=== PATIENT | female | born 1950 | race Caucasian/White ===

== ENCOUNTER → 2016-08-04 | Outpatient (REF) | payer MEDICARE, OTHER ==
[2016-08-04 11:50] LABS: BASO % 0.5 % (0.0-1.0); EOS # 0.2 K/mm3 (0.0-0.50); EOS % 2.5 % (0.0-3.0); LARGE UNSTAINED CELL # 0.1 K/mm3 (0.0-0.4); LARGE UNSTAINED CELL % 1.3 % (0.0-4.0); LYMPH # 1.7 K/mm3 (1.5-4.5); MEAN CORPUSCULAR HEMOGLOBIN 30.6 pg (27.0-33.0); MEAN CORPUSCULAR HGB CONC 33.6 g/dl (32.0-36.5); MEAN CORPUSCULAR VOLUME 91.1 fl (80.0-96.0); MONO # 0.4 K/mm3 (0.0-0.8); MONO % 4.6 % (0.0-5.0); NEUTROPHILS # 6.6 K/mm3 (1.8-7.7); NEUTROPHILS % 72.1 % (36.0-66.0); PLATELET COUNT, AUTOMATED 273 k/mm3 (150-450); RED CELL DISTRIBUTION WIDTH 13.5 % (11.5-14.5); WHITE BLOOD COUNT 9.1 K/mm3 (4.0-10.0)
[2016-08-04 12:05] LABS: ANION GAP 7 MEQ/L (8-16); BLOOD UREA NITROGEN 17 MG/DL (7-18); CALCIUM LEVEL 9.1 MG/DL (8.8-10.2); CARBON DIOXIDE LEVEL 29 MEQ/L (21-32); CHLORIDE LEVEL 103 MEQ/L (98-107); CREATININE FOR GFR 0.87 MG/DL (0.55-1.02); GLOMERULAR FILTRATION RATE > 60.0 (>45); GLUCOSE, FASTING 116 MG/DL (80-110); POTASSIUM SERUM 4.4 MEQ/L (3.5-5.1); SODIUM LEVEL 139 MEQ/L (136-145)
== END ==
LOC: M SFHCCLAY 09:21
PROVIDERS: ATTEND Family Medicine
DX: Z85.3 Personal history of malignant neoplasm of breast (principal)

== ENCOUNTER → 2016-12-04 | Outpatient (CLI) | payer MEDICARE, OTHER ==
--- NOTE | 2016-12-05 09:07 | DEXA ---
AP SPINE L1 - L4 1.138 -0.5 1.2 LT FEMUR TOTAL 1.013 0.0 1.4 RT FEMUR TOTAL 1.036 0.2 1.6 TOTAL BODY TOTAL OTHER COMMENTS: Normal bone densitometry of the spine and hips. The density of the spine has increased 11.5% since the initial exam on 2003. The spine density has decreased 5.4% since the most recent exam on 12/01/2014. The density of the left hip has increased 2.2% since initial exam on 10/21/2003. The density of the left hip has decreased 2.6% since the most recent exam on . The density of the right hip has decreased 9.1% since initial exam on 2003. The density of the right hip has decreased 4.2% since the most recent exam on . FOLLOW-UP: Recommendation for the next bone density exam: 5 years. [place]
== END ==
LOC: M WHC 08:37
PROVIDERS: ATTEND Internal Medicine Medical Oncology
DX: M81.0 Age-related osteoporosis without current pathological fracture (principal); C50.912 Malignant neoplasm of unspecified site of left female breast; Z79.811 Long term (current) use of aromatase inhibitors; Z23 Encounter for immunization; Z91.89 Other specified personal risk factors, not elsewhere classified
CPT/HCPCS: 77080; 90662; G0008

== ENCOUNTER → 2017-02-21 | Outpatient (REF) | payer MEDICARE, OTHER ==
[2017-02-21 11:44] LABS: BASO # 0.1 10^3/uL (0.0-0.2); BASO % 0.6 % (0.0-1.0); EOS # 0.2 10^3/uL (0.0-0.50); EOS % 2.4 % (0.0-3.0); IMMATURE GRANULOCYTE % 0.5 % (0-0); LYMPH # 1.9 10^3/uL (1.5-4.5); LYMPH % 22.1 % (24.0-44.0); MEAN CORPUSCULAR HEMOGLOBIN 29.8 pg (27.0-33.0); MEAN CORPUSCULAR HGB CONC 33.5 g/dl (32.0-36.5); MEAN CORPUSCULAR VOLUME 88.9 fl (80.0-96.0); MONO # 0.7 10^3/uL (0.0-0.8); MONO % 7.8 % (0.0-5.0); NEUTROPHILS # 5.8 10^3/uL (1.8-7.7); NEUTROPHILS % 66.6 % (36.0-66.0); PLATELET COUNT, AUTOMATED 261 10^3/uL (150-450); RED CELL DISTRIBUTION WIDTH 14.6 % (11.5-14.5); WHITE BLOOD COUNT 8.7 10^3/uL (4.0-10.0)
[2017-02-21 12:23] LABS: ALBUMIN 3.7 GM/DL (3.2-5.2); ALBUMIN/GLOBULIN RATIO 1.19 (1.00-1.93); ALKALINE PHOSPHATASE 92 U/L (45-117); ALT/SGPT 25 U/L (12-78); ANION GAP 7 MEQ/L (8-16); AST/SGOT 18 U/L (7-37); BILIRUBIN,TOTAL 0.6 MG/DL (0.2-1.0); BLOOD UREA NITROGEN 23 MG/DL (7-18); CALCIUM LEVEL 9.1 MG/DL (8.8-10.2); CARBON DIOXIDE LEVEL 31 MEQ/L (21-32); CHLORIDE LEVEL 103 MEQ/L (98-107); CHOLESTEROL LEVEL 166 MG/DL (<200); FREE T4 1.06 NG/DL (0.76-1.46); GLOMERULAR FILTRATION RATE > 60.0 (>45); GLUCOSE, FASTING 114 MG/DL (80-110); SODIUM LEVEL 141 MEQ/L (136-145); TOTAL PROTEIN 6.8 GM/DL (6.4-8.2); TRIGLYCERIDES LEVEL 151 MG/DL (<150)
== END ==
LOC: M SFHCCLAY 08:42
PROVIDERS: ATTEND Nurse Practitioner Family
DX: I10 Essential (primary) hypertension (principal)

== ENCOUNTER → 2017-07-12 | Outpatient (REF) | payer MEDICARE, OTHER ==
[2017-07-12 12:36] LABS: ANION GAP 6 MEQ/L (8-16); BLOOD UREA NITROGEN 19 MG/DL (7-18); CALCIUM LEVEL 9.3 MG/DL (8.8-10.2); CARBON DIOXIDE LEVEL 31 MEQ/L (21-32); CHLORIDE LEVEL 103 MEQ/L (98-107); CREATININE FOR GFR 0.88 MG/DL (0.55-1.30); GLOMERULAR FILTRATION RATE > 60.0 (>45); GLUCOSE, FASTING 109 MG/DL (70-100); SODIUM LEVEL 140 MEQ/L (136-145)
[2017-07-12 13:29] LABS: ESTIMATED AVERAGE GLUCOSE 140 MG/DL (60-110); HEMOGLOBIN A1c 6.5 %
== END ==
LOC: M SFHCCLAY 08:54
DX: E78.2 Mixed hyperlipidemia (principal); I10 Essential (primary) hypertension; R73.01 Impaired fasting glucose
CPT/HCPCS: 83036

== ENCOUNTER → 2017-11-06 | Outpatient (REF) | payer MEDICARE, OTHER ==
[2017-11-06 13:15] LABS: ANION GAP 8 MEQ/L (8-16); BLOOD UREA NITROGEN 22 MG/DL (7-18); CALCIUM LEVEL 9.3 MG/DL (8.8-10.2); CARBON DIOXIDE LEVEL 30 MEQ/L (21-32); CHLORIDE LEVEL 103 MEQ/L (98-107); CREATININE FOR GFR 0.96 MG/DL (0.55-1.30); GLOMERULAR FILTRATION RATE > 60.0 (>45); GLUCOSE, FASTING 118 MG/DL (70-100); POTASSIUM SERUM 4.4 MEQ/L (3.5-5.1); SODIUM LEVEL 141 MEQ/L (136-145)
[2017-11-06 17:48] LABS: ESTIMATED AVERAGE GLUCOSE 134 MG/DL (60-110); HEMOGLOBIN A1c 6.3 %
== END ==
LOC: M SFHCCLAY 08:09
DX: I10 Essential (primary) hypertension (principal); E11.9 Type 2 diabetes mellitus without complications
CPT/HCPCS: 83036

== ENCOUNTER → 2018-09-26 | Outpatient (REF) | payer MEDICARE, OTHER ==
[2018-09-26 12:21] LABS: HEMOGLOBIN A1c 6.7 %
[2018-09-26 12:30] LABS: ALT/SGPT 29 U/L (12-78); BLOOD UREA NITROGEN 20 MG/DL (7-18); CALCIUM LEVEL 9.5 MG/DL (8.8-10.2); CARBON DIOXIDE LEVEL 33 MEQ/L (21-32); CHLORIDE LEVEL 100 MEQ/L (98-107); CHOLESTEROL LEVEL 176 MG/DL (<200); CREATININE FOR GFR 0.97 MG/DL (0.55-1.30); GLOMERULAR FILTRATION RATE > 60.0 (>45); GLUCOSE, FASTING 132 MG/DL (70-100); HDL CHOLESTEROL 50 MG/DL (>40); LDL CHOLESTEROL 94 MG/DL (<100); NON-HDL-C 126 MG/DL; POTASSIUM SERUM 4.3 MEQ/L (3.5-5.1); SODIUM LEVEL 137 MEQ/L (136-145); TRIGLYCERIDES LEVEL 159 MG/DL (<150)
== END ==
LOC: M SFHCCLAY 09:10
PROVIDERS: ATTEND Family Medicine
DX: E11.9 Type 2 diabetes mellitus without complications (principal); E78.2 Mixed hyperlipidemia; Z98.890 Other specified postprocedural states

== ENCOUNTER → 2019-02-18 | Outpatient (CLI) | payer MEDICARE, OTHER | LOC: M WHC 14:21 | PROVIDERS: ATTEND Internal Medicine Medical Oncology | DX: Z79.811 Long term (current) use of aromatase inhibitors (principal) ==

== ENCOUNTER → 2019-08-20 | Outpatient (REF) | payer MEDICARE, OTHER ==
[2019-08-20 16:53] LABS: CALCIUM LEVEL 9.7 MG/DL (8.8-10.2); CHOLESTEROL RISK RATIO 3.522 (<5); CREATININE FOR GFR 0.99 MG/DL (0.55-1.30); POTASSIUM SERUM 4.1 MEQ/L (3.5-5.1)
[2019-08-20 17:44] LABS: HEMOGLOBIN A1c 7.1 %
== END ==
LOC: M SFHCCLAY 09:55
PROVIDERS: ATTEND Family Medicine
DX: E78.2 Mixed hyperlipidemia (principal); E11.9 Type 2 diabetes mellitus without complications
CPT/HCPCS: 80048; 80061; 83036; 84460; G0463

== ENCOUNTER → 2020-03-02 | Outpatient (REF) | payer MEDICARE, OTHER ==
[2020-03-02 12:18] LABS: HEMOGLOBIN A1c 6.6 %
== END ==
LOC: M SFHCCLAY 09:09
PROVIDERS: ATTEND Family Medicine
DX: E11.9 Type 2 diabetes mellitus without complications (principal)
CPT/HCPCS: 83036; G0463

== ENCOUNTER → 2020-12-13 | Outpatient (CLI) | payer MEDICARE, OTHER ==
[~2020-12-13] MED LIST: BISO5TAB14 PO; ECOT81TA5 PO; HYDR-3490 PO; LETR2.5T2 PO; LISI40TA4 PO; OMEP-221 PO; ROSU40TA4 PO; TRAV2.5D
== END ==
LOC: M LABSMTC 09:38
PROVIDERS: ATTEND Anesthesiology
DX: Z01.818 Encounter for other preprocedural examination (principal); Z11.52 Encounter for screening for COVID-19

== ENCOUNTER 2020-12-17 11:44 | Day surgery (SDC) | payer MEDICARE, OTHER ==
[~2020-12-17] VITALS: Ht 167.6 cm; Wt 101.6 kg
[~2020-12-17 11:44] MED LIST changes: +NS 1,000 ML IV ONE
--- OUTSIDE RECORDS SUMMARY | 2020-12-17 11:49 | CCD ---
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 Name Role Phone Julia Rowley MD Unavailable Unavailable Julia Rowley MD Unavailable Unavailable Julia Rowley MD Unavailable Unavailable Julia Rowley MD Unavailable Unavailable Julia Rowley MD Unavailable Unavailable Julia Rowley MD Unavailable Unavailable Julia Rowley MD Unavailable Unavailable Julia Rowley MD Unavailable Unavailable Julia Rowley MD Unavailable Unavailable Julia Rowley MD Unavailable Unavailable Julia Rowley MD Unavailable Unavailable Julia Rowley MD Unavailable Unavailable Julia Rowley MD Unavailable Unavailable Julia Rowley MD Unavailable Unavailable Julia Rowley MD Unavailable Unavailable Julia Rowley MD Unavailable Unavailable Julia Rowley MD Unavailable Unavailable Julia Rowley MD Unavailable Unavailable Julia Rowley MD Unavailable Unavailable Julia Rowley MD Unavailable Unavailable Julia Rowley MD Unavailable Unavailable Julia Rowley MD Unavailable Unavailable Julia Rowley MD Unavailable Unavailable Julia Rowley MD Unavailable Unavailable Julia Rowley MD Unavailable Unavailable Julia Rowley MD Unavailable Unavailable Julia Rowley MD Unavailable Unavailable Julia Rowley MD Unavailable Unavailable Julia Rowley MD Unavailable Unavailable Julia Rowley MD Unavailable Unavailable Julia Rowley MD Unavailable Unavailable Julia Rowley MD Unavailable Unavailable Julia Rowley MD Unavailable Unavailable Julia Rowley MD Unavailable Unavailable Julia Rowley MD Unavailable Unavailable Julia Rowley MD Unavailable Unavailable Julia Rowley MD Unavailable Unavailable Julia Rowley MD Unavailable Unavailable Julia Rowley MD Unavailable Unavailable Julia Rowley MD Unavailable Unavailable Julia Rowley MD Unavailable Unavailable Julia Rowley MD Unavailable Unavailable Julia Rowley MD Unavailable Unavailable Julia Rowley MD Unavailable Unavailable Julia Rowley MD Unavailable Unavailable Julia Rowley MD Unavailable Unavailable Julia Rowley MD Unavailable Unavailable Julia Rowley MD Unavailable Unavailable Julia Rowley MD Unavailable Unavailable Julia Rowley MD Unavailable Unavailable PETROFF, SHERINE PA Unavailable Unavailable PETROFF, SHERINE PA Unavailable Unavailable PETROFF, SHERINE PA Unavailable Unavailable PETROFF, SHERINE PA Unavailable Unavailable PETROFF, SHERINE PA Unavailable Unavailable PETROFF, SHERINE PA Unavailable Unavailable PETROFF, SHERINE PA Unavailable Unavailable PETROFF, SHERINE PA Unavailable Unavailable JHONATHAN LAURENT MD Unavailable Unavailable JHONATHAN LAURENT MD Unavailable Unavailable JHONATHAN LAURENT MD Unavailable Unavailable JHONATHAN LAURENT MD Unavailable Unavailable JHONATHAN LAURENT MD Unavailable Unavailable JHONATHAN LAURENT MD Unavailable Unavailable JHONATHAN LAURENT MD Unavailable Unavailable JHONATHAN LAURENT MD Unavailable Unavailable JHONATHAN LAURENT MD Unavailable Unavailable JHONATHAN LAURENT MD Unavailable Unavailable MIGNON CORONA MD Unavailable Unavailable MIGNON CORONA MD Unavailable Unavailable MIGNON CORONA MD Unavailable Unavailable MIGNON CORONA MD Unavailable Unavailable MIGNON CORONA MD Unavailable Unavailable MIGNON CORONA MD Unavailable Unavailable MIGNON CORONA MD Unavailable Unavailable MIGNON CORONA MD Unavailable Unavailable MIGNON CORONA MD Unavailable Unavailable MIGNON CORONA MD Unavailable Unavailable MIGNON CORONA MD Unavailable Unavailable MIGNON CORONA MD Unavailable Unavailable MIGNON CORONA MD Unavailable Unavailable MIGNON CORONA MD Unavailable Unavailable MIGNON CORONA MD Unavailable Unavailable MIGNON CORONA MD Unavailable Unavailable MIGNON CORONA MD Unavailable Unavailable MIGNON CORONA MD Unavailable Unavailable MIGNON CORONA MD Unavailable Unavailable MIGNON CORONA MD Unavailable Unavailable MIGNON CORONA MD Unavailable Unavailable MIGNON CORONA MD Unavailable Unavailable MIGNON CORONA MD Unavailable Unavailable MIGNON CORONA MD Unavailable Unavailable MIGNON CORONA MD Unavailable Unavailable MIGNON CORONA MD Unavailable Unavailable MIGNON CORONA MD Unavailable Unavailable MIGNON CORONA MD Unavailable Unavailable MIGNON CORONA MD Unavailable Unavailable MIGNON CORONA MD Unavailable Unavailable MIGNON CORONA MD Unavailable Unavailable MIGNON CORONA MD Unavailable Unavailable MIGNON CORONA MD Unavailable Unavailable MIGNON CORONA MD Unavailable Unavailable MIGNON CORONA MD Unavailable Unavailable MIGNON CORONA MD Unavailable Unavailable JULIUS MIBETH MD Unavailable Unavailable JULIUS MIBETH NAYAK Unavailable Unavailable MIGNON CORONA MD Unavailable Unavailable MIGNON CORONA MD Unavailable Unavailable JULIUS MIBETH NAYAK Unavailable Unavailable JULIUS MIJUNG MD Unavailable Unavailable JULIUS MIJUNG MD Unavailable Unavailable JULIUS MIJUNG MD Unavailable Unavailable JULIUS MIJUNCaren NAYAK Unavailable Unavailable JULIUS MIBETH NAYAK Unavailable Unavailable MIGNON CORONA MD Unavailable Unavailable MIGNON CORONA MD Unavailable Unavailable MIGNON CORONA MD Unavailable Unavailable MIGNON CORONA MD Unavailable Unavailable MIGNON CORONA MD Unavailable Unavailable MIGNON CORONA MD Unavailable Unavailable MIGNON CORONA MD Unavailable Unavailable MIGNON CORONA MD Unavailable Unavailable MIGNON CORONA MD Unavailable Unavailable MIGNON CORONA MD Unavailable Unavailable MIGNON CORONA MD Unavailable Unavailable MIGNON CORONA MD Unavailable Unavailable Crow, D Rosaline HAND SIGN WRITER Unavailable Unavailable Crow, D Rosaline HAND SIGN WRITER Unavailable Unavailable Crow, D Rosaline HAND SIGN WRITER Unavailable Unavailable Crow, D Rosaline HAND SIGN WRITER Unavailable Unavailable Crow, D Rosaline HAND SIGN WRITER Unavailable Unavailable Crow, D Rosaline HAND SIGN WRITER Unavailable Unavailable Crow, D Rosaline HAND SIGN WRITER Unavailable Unavailable Crow, D Rsoaline HAND SIGN WRITER Unavailable Unavailable Crow, D Rosaline HAND SIGN WRITER Unavailable Unavailable Crow, D Rosaline HAND SIGN WRITER Unavailable Unavailable Crwo, D Rosaline HAND SIGN WRITER Unavailable Unavailable Crow, D Rosaline HAND SIGN WRITER Unavailable Unavailable Crow, D Rosaline HAND SIGN WRITER Unavailable Unavailable Crow, D Rosaline HAND SIGN WRITER Unavailable Unavailable Crow, D Rosaline HAND SIGN WRITER Unavailable Unavailable Crow, D Rosaline HAND SIGN WRITER Unavailable Unavailable Crow, D Rosaline HAND SIGN WRITER Unavailable Unavailable Crow, D Rosaline HAND SIGN WRITER Unavailable Unavailable Crow, D Rosaline HAND SIGN WRITER Unavailable Unavailable Crow, D Rosaline HAND SIGN WRITER Unavailable Unavailable Crow, D Rosaline HAND SIGN WRITER Unavailable Unavailable Crow, D Rosaline HAND SIGN WRITER Unavailable Unavailable Crow, D Rosaline HAND SIGN WRITER Unavailable Unavailable Crow, D Rosaline HAND SIGN WRITER Unavailable Unavailable Crow, D Rosaline HAND SIGN WRITER Unavailable Unavailable Crow, D Rosaline HAND SIGN WRITER Unavailable Unavailable Crow, D Rosaline HAND SIGN WRITER Unavailable Unavailable Crow, D Rosaline HAND SIGN WRITER Unavailable Unavailable Crow, D Rosaline HAND SIGN WRITER Unavailable Unavailable Crow, D Rosaline HAND SIGN WRITER Unavailable Unavailable Crow, D Rosaline HAND SIGN WRITER Unavailable Unavailable Crow, D Rosaline HAND SIGN WRITER Unavailable Unavailable Crow, D Rosaline HAND SIGN WRITER Unavailable Unavailable Crow, D Rosaline HAND SIGN WRITER Unavailable Unavailable Crow, D Rosaline HAND SIGN WRITER Unavailable Unavailable Corw, D Rosaline HAND SIGN WRITER Unavailable Unavailable Crow, D Rosaline HAND SIGN WRITER Unavailable Unavailable Crow, D Rosaline HAND SIGN WRITER Unavailable Unavailable Crow, D Rosaline HAND SIGN WRITER Unavailable Unavailable Crow, D Rosaline HAND SIGN WRITER Unavailable Unavailable Crow, D Rosaline HAND SIGN WRITER Unavailable Unavailable Crow, D Rosaline HAND SIGN WRITER Unavailable Unavailable Crow, D Rosaline HAND SIGN WRITER Unavailable Unavailable Crow, D Rosaline HAND SIGN WRITER Unavailable Unavailable Crow, D Rosaline HAND SIGN WRITER Unavailable Unavailable Crow, D Rosaline HAND SIGN WRITER Unavailable Unavailable Crow, D Rosaline HAND SIGN WRITER Unavailable Unavailable Crow, D Rosaline HAND SIGN WRITER Unavailable Unavailable Crow, D Rosaline HAND SIGN WRITER Unavailable Unavailable Crow, D Rosaline HAND SIGN WRITER Unavailable Unavailable Crow, D Rosaline HAND SIGN WRITER Unavailable Unavailable Crow, D Rosaline HAND SIGN WRITER Unavailable Unavailable Crow, D Rosaline HAND SIGN WRITER Unavailable Unavailable Re-disclosure Warning The records that you are about to access may contain information from federally-assisted alcohol or drug abuse programs. If such information is present, then the following federally mandated warning applies: This information has been disclosed to you from records protected by federal confidentiality rules (42 CFR part 2). The federal rules prohibit you from making any further disclosure of this information unless further disclosure is expressly permitted by the written consent of the person to whom it pertains or as otherwise permitted by 42 CFR part 2. A general authorization for the release of medical or other information is NOT sufficient for this purpose. The Federal rules restrict any use of the information to criminally investigate or prosecute any alcohol or drug abuse patient.The records that you are about to access may contain highly sensitive health information, the redisclosure of which is protected by Article 27-F of the [place] State Public Health law. If you continue you may have access to information: Regarding HIV / AIDS; Provided by facilities licensed or operated by the [facility] Office of Mental Health; or Provided by the [facility] Office for People With Developmental Disabilities. If such information is present, then the following [facility] mandated warning applies: This information has been disclosed to you from confidential records which are protected by state law. State law prohibits you from making any further disclosure of this information without the specific written consent of the person to whom it pertains, or as otherwise permitted by law. Any unauthorized further disclosure in violation of state law may result in a fine or residential sentence or both. A general authorization for the release of medical or other information is NOT sufficient authorization for further disc losure. Allergies and Adverse Reactions Type Description Substance Reaction Status Data Source(s ) Propensity to adverse reactions ATORVASTATIN Atorvastatin Palpitati ons Low Active [facility] Low Drug allergy ATORVASTATIN CALCIUM ATORVASTATIN CALCIUM Palpitations L [facility] Encounters Encounter Providers Location Date Indications Data Source(s ) Outpatient Attender: MIGNON CORONA MD 02/14/2021 12:00:00 AM [facility] Unknown [address] [facility] [facility] [facility] [address] 11/16/2020 12:00:00 AM EDT eCW1 ([facility]) Outpatient Attender: Villa Rowley MD Main Office 10/28/2020 10:45:00 AM EDT [facility] ([facility]) Outpatient [address] [facility] [address] 09/01/2020 12:00:00 AM EDT eCW1 ([facility]) Outpatient Attender: Rosaline STEVENS 08/26/2020 1 1:05:37 AM EDT [facility] Unknown [address] [facility] [place] [address] 07/19/2020 12:00:00 AM EDT eCW1 ([facility]) Unknown [address] [facility] [place] [address] 05/10/2020 12:00:00 AM EST eCW1 ([facility]) Unknown [address] [facility] [place] [address] 03/12/2020 12:00:00 AM EST eCW1 ([facility]) Outpatient [address] [facility] [place] [address] 03/02/2020 12:00:00 AM EST eCW1 ([facility]) Outpatient Attender: MIGNON CORONA MD [id number] 02/16/20 12:00:00 AM EST - 02/16/2020 12:32:24 PM [facility] Out[place] [address] [facility] [place] [address] 12/24/2019 12:00:00 AM EDT eCW1 ([facility]) [place] [address] [facility] [place] [address] 12/17/2019 12:00:00 AM EDT eCW1 ([facility]) [place] [address] [facility] [place] [address] 12/05/2019 12:00:00 AM EDT eCW1 ([facility]) Emergency Attender: SHERINE REMY 2013 01:42:00 PM EST - 02/27/2014 03:55:00 PM [facility] Emergency Attender: JHONATHAN LAURENT MD 11/04 05:03:00 PM EDT - 11/22/2012 06:48:00 PM [facility] Immunizations Vaccine Date Status Description Data Source(s) VARICELLA-ZOSTER GE/AS01B/PF 11/22/2020 12:00:00 AM EDT completed [facility] COVID-19 VACCINE Moderna 05/05/2020 12:00:00 AM EST completed [facility] Vaccine Series Complete: YESThis Data wa s Submitted to [facility] Via ipsy. COVID-19 VACCINE Moderna 04/02/2020 12:00:00 AM EST completed [facility] Vaccine Series Complete: NOThis Data was Submitted to [facility] Via ipsy. zoster 11/24/2019 07:57:00 AM EDT completed e CW1 (Replaced By [facility]) zoster 11/24/2019 07:57:00 AM EDT completed e CW1 (Replaced By [facility]) zoster 11/24/2019 07:57:00 AM EDT completed e CW1 (Replaced By [facility]) zoster 11/24/2019 07:57:00 AM EDT completed e CW1 (Replaced By [facility]) zoster 11/24/2019 07:57:00 AM EDT completed e CW1 (Replaced By [facility]) zoster 11/24/2019 07:57:00 AM EDT completed e CW1 (Replaced By [facility]) zoster 11/24/2019 07:57:00 AM EDT completed e CW1 (Replaced By [facility]) IIV3. This is one of two codes replacing CVX 15, which is being retired. 11/24/2019 06:36:00 AM EDT completed eCW1 ([facility]) Medications Medication Brand Name Start Date Product Form Dose Route Admi nistrative Instructions Pharmacy Instructions Status Indications Reaction Description Data Source(s) 1.479-0.188- 0.225 gram 10/29/2020 12:00:00 AM EDT tablet 24 TAKE BY MOUTH DIRECTED TAKE BY MOUTH DIRECTED SOLD: 11/03/2020 [facility] Omeprazole 40 MG Delayed Release Oral Capsule Omeprazole 10/28/2020 12:00:00 AM EDT ORAL active [facility] ([facility]) Sutab Sutab 10/28/2020 12:00:00 AM EDT active [facility] ([facility]) Hydrochlorothiazide 25 MG Oral Tablet hy drochlorothiazide (HYDRODIURIL) 25 MG tablet hydrochlorothiazide (HYDRODIURIL) 25 MG tablet 021 12:00:00 AM EDT active TAKE ONE TABLET B Y MOUTH IN THE MORNING ONCE A DAY [facility] Hydrochlorothiazide 12.5 MG Oral Tablet hydrochlorothiazide (HYDRODIURIL) 12.5 MG tablet hydrochlorothiazide (HYDRODIURIL) 12.5 MG tablet 12.5 mg Oral aborted Take 12.5 mg by mouth [facility] Insurance Providers Payer name Policy type / Coverage type Policy ID Covered alliance party ID Covered alliance party's relationship to chavira Policy Chavira Plan Information POMCO U [id number] Spouse [id number] POMCO [id number] Spo [id number] MEDICARE A [id number] Self [id number] A MEDICARE A [id number] Self [id number] MEDICARE [id number] Alexa [id number] E99 MEDICARE [id number] Alexa [id number] A MEDICARE [id number] UMR [id number] Spo [id number] UMR U [id number] Spouse [id number] UMR [id number] UMR F [id number] SPOUSE [id number] Medicare C [id number] SELF [id number] E99 UMR F [id number] SPOUSE [id number] UMR F [id number] SPOUSE [id number] DME Jurisdiction A NHIC C [id number] SELF [id number] COMMERCIAL GENERIC [id number] Alexa 1 [id number] UMR U [id number] Spouse [id number] ANSI-Commercial [id number] ANSI-Commercial [id number] ANSI-Commercial [id number] ANSI-Medicare Part B [id number] ANSI-Medicare Part B [id number] ANSI-Commercial [id number] ANSI-Commercial [id number] ANSI-Commercial [id number] ANSI-Medicare Part B [id number] ANSI-Commercial [id number] ANSI-Commercial [id number] ANSI-Commercial [id number] [facility] [id number] S [id number] [facility] MEDICARE DIVISION [id number] S [id number] MEDICARE [place] [id number] S [id number] [place] MEDIC[place] DIVISION [id number] S [id number] [place] [id number] S [id number] ANSI-Commercial [id number] ANSI-Commercial [id number] ANSI-Medicare Part B [id number] ANSI-Commercial [id number] ANSI-Medicare Part B [id number] ANSI-Commercial [id number]-6668-[id number] ANSI-Commercial [id number]-alnv-[id number]-[id number] ANSI-Commercial [id number]-[id number] ANSI-Medicare Part B [id number] ANSI-Commercial [id number] ANSI-Commercial [id number]-29zi-[id number]-13ai-[id number] ANSI-Commercial [id number] MEDICARE [id number] A ANSI-Commercial [id number] ANSI-Commercial [id number] ANSI-Commercial [id number] aacxxe73-[id number]-[id number] ANSI-Medicare Part B [id number] ANSI-Commercial [id number] ANSI-Commercial [id number] ANSI-Commercial [id number] ANSI-Medicare Part B [id number] ANSI-Commercial [id number] ANSI-Medicare Part B [id number] ANSI-Commercial [id number] ANSI-Commercial [id number] [facility] U [id number] Spouse [id number] POMCO [id number] SP [id number] POMCO PPO O [id number] S [id number] MEDICARE C [id number] S [id number] A POMCO O [id number] U [id number] GHI O [id number] U [id number] GHI COMM CONTR [id number] SPO [id number] POMCO PPO P UNAVAILABLE [id number] P UNAVAILA BLE MEDICARE [id number] SP [id number] UNAVAILABLE UNAVAILA BLE [facility] [id number] [facility] [id number] [facility] MEDICARE DIVISION [id number] S [id number] [place]ICARE [place] [id number] S [id number] POMCO [id number] SPO [id number] ANSI-Commercial [id number] ANSI-Medicare Part B [id number] ANSI-Commercial [id number] ANSI-Commercial [id number]-[id number] ANSI-Commercial [id number] ANSI-Commercial [id number] ANSI-Commercial [id number] ANSI-Medicare Part B [id number] ANSI-Commercial [id number] ANSI-Commercial [id number] ANSI-Medicare Part B [id number] ANSI-Commercial [id number] Problems, Conditions, and Diagnoses Code Display Name Description Problem Type Effective Dates Data Source(s) 601983532 Screening for malignant neoplasm of colo n Screening for malignant neoplasm of colon Problem 10/28/2020 12:00:00 AM EDT [facility] ([facility]) I83.92 39666450 Asymptomatic varicose veins of left lower extremity Problem 09/01/2020 12:00:00 AM EDT eCW1 (Replaced By [facility]) Z90.13 812746560 S/P bilateral mastectomy Problem 03/02/2020 12:00:00 AM EST eCW1 (Replaced By [facility]) Z12.11 745858967 Screen for colon cancer Problem 03/02/2020 1 2:00:00 AM EST eCW1 (Replaced By [facility]) Surgeries/Procedures Procedure Description Date Indications Data Source(s) OFFICE OUTPATIENT NEW 30 MINUTES 10/28/2020 12:00:00 A M EDT [facility] ([facility]) Results ID Date Data Source [id number] 08/26/2020 11:30:20 AM [facility]FORMATIONPatient MRN Name Date of Age Gend*PT [id number] Elva Hilario 1950 70 years F ---PT Location Admission Date/Time Visit ID Attending Provider --- --- --- --- EPI ID CSN Admitting Pro vider [id number] ---08/26/20 Elva Hilario [id number] female 70 yearsThis is a patient of Dr. 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, DCIS,axillary sentinel lymph node biopsy +0/1, ER/MN neg, H2N positive, [id number],Stage IITreatment:Left mastectomy, declined reconstruction, Dr Curryemotherapy with 4 cycles AC followed by taxol + herceptin, completed year ofHerceptin, Dr Verde Diagnosis/Surgical Pathology 11/2014: RIGHT breast grade 2 invasive ductal carcinoma, DCIS, axillary sentinel nodebiopsy +0/5, ER/MN+, H2N negative, [id number], Stage IA Treatment 2015:Right mastectomy with negative axillary sentinel lymph node biopsy 11/2014, Jairocotype score 0, no chemotherapyLetrozole started 12/2014, Dr Corona 06/2015 right chest wall/ soft tissue, right chest, core biopsies: Changesrelated to previous mastectomy including fat necrosis and focal foreign bodyreaction to polarizable material Family Cancer History:PGM: breastSister: lungGenetic [facility] negative for mutation Current Meds:Current Outpatient Medications: ALPRAZolam (XANAX PO), Take by mouth, Disp: , Rfl: aspirin (ASPIRIN) 81 MG chewable tablet, Chew 81 mg, Disp: , Rfl: bisoprolol (ZEBETA) 5 MG tablet, Take 5 mg by mouth, Disp: , Rfl: calcium citrate-vitamin D (CITRACAL+D) 315-200 MG-UNIT per tablet, Take bymouth 4 times monthly, Disp: , Rfl: famotidine (PEPCID) 20 MG tablet, TAKE ONE TABLET BY MOUTH AT BEDTIME ASNEEDED FOR REFLUX SYMPTOMS, Disp: , Rfl: hydrochlorothiazide (HYDRODIURIL) 25 MG tablet, TAKE ONE TABLET BY MOUTH INTHE MORNING ONCE A DAY, Disp: , Rfl: ibuprofen (ADVIL,MOTRIN) 200 MG tablet, Take 200 mg by mouth, Disp: , Rfl: letrozole (FEMARA) 2.5 MG tablet, Take 2.5 mg by mouth daily, Disp: , Rfl: lisinopril (PRINIVIL,ZESTRIL) 40 MG tablet, Take 40 mg by mouth daily, Disp:, Rfl: rosuvastatin (CRESTOR) 20 MG tablet, Take 20 mg by mouth daily, Disp: , Rfl: travoprost, benzalkonium, (TRAVATAN) 0.004 % ophthalmic solution, 1 dropnightly., Disp: , Rfl:Allergies:AllergiesAllergen Reactions Adhesive Tape Other Some tapes. 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 Osteoporosis RIGHT breast grade 2 invasive ductal carcinoma, DCIS, axillary sentinel nodebiopsy +0/5, ER/MN+, H2N negative, K1iQ1G4, Stage IA 10/30/2014 S/P bilateral mastectomy, right in 2014, left in 200811/20/2014Family HistoryProblem Relation Age of Onset Hypertension Mother Hyperlipidemia Mother Heart disease Mother Cerebrovascular Accident (CVA) Father Hypertension Father Hyperlipidemia Father Heart disease Father Lung cancer Sister Healthy, No Significant History Brother Healthy, No Significant History Son Healthy, No Significant History Son Healthy, No Significant History Son Healthy, No Significant History Maternal Grandmother Breast cancer Paternal Grandmother Healthy, No Significant History Paternal Grandfather Healthy, No Significant History Maternal Aunt Healthy, No Significant History Maternal Uncle Healthy, No Significant History Paternal Aunt Healthy, No Significant History Paternal Uncle Malig Hyperthermia Neg HxSocial HistorySocioeconomic History Marital status: Spouse name: Not on file Number of children: Not on file Years of education: Not on file Highest education level: Not on fileOccupational History Not on fileTobacco Use Smoking status: Never Smoker Smokeless tobacco: Never UsedSubstance and Sexual Activity Alcohol use: Yes Comment: socialy Drug use: No Sexual activity: Not on fileOther Topics Concern Bike Helmet Not Asked History of Breast Feeding Not Asked Self-Exams Not Asked Caffeine Concern Not Asked Hobby Hazards Not Asked Sleep Concern Not Asked Daily Calcium Supplement Not Asked Lead Exposure Not Asked Special Diet Not Asked Daily Vitamin D Supplement Not Asked Service Not Asked Stress Concern Not Asked Domestic Violence in home Not Asked Radon exposure Not Asked Weight Concern Not Asked Exercise Not Asked Seat Belt Not Asked Well water Not Asked Firearms in home Not Asked History of Falls Not AskedSocial History Narrative Not on fileSocial Determinants of HealthFinancial Resource Strain: Difficulty of Paying Living Expenses:Food Insecurity: Worried About Running Out of Food in the Last Year: Ran Out of Food in the Last Year:Transportation Needs: Lack of Transportation (Medical): Lack of Transportation (Non-Medical):Physical Activity: Days of Exercise per Week: Minutes of Exercise per Session:Stress: Feeling of Stress :Social Connections: Frequency of Communication with Friends and Family: Frequency of Social Gatherings with Friends and Family: Attends Spiritism Services: Active Member of Clubs or Organizations: Attends Club or Organization Meetings: Marital Status:Intimate Partner Violence: Fear of Current or Ex-Partner: Emotionally Abused: Physically Abused: Sexually Abused:Review of SystemsReview of SystemsConstitutional: Negative.HENT: Negative.Eyes: Negative.Respiratory: Negative.Cardiovascular: Negative.Gastrointestinal: Negative.Endocrine: Negative.Genitourinary: Negative.Musculoskeletal: Negative.Skin: Negative.Allergic/Immunologic: Negative.Neurological: Negative.Hematological: Negative.Psychiatric/Behavioral: Negative.Vitals: 08/26/20 1112BP: 157/90Pulse: 57Resp: 18Temp: 97.2 FExam:Const: Appears pleasant. No signs of apparent distress present. Alert andoriented.Head/Face: Atraumatic, normocephalic and no lesions or masses.Eyes: Conjunctivae pink.No icterus of the sclerae bilaterally.ENMT: Oral mucosa: pink and moist with no lesions.Neck: Supple. Palpation reveals no lymphadenopathy, swelling or tenderness.Trachea midline.Resp: Respirations are regular. Lungs are clear bilaterally.CV: Rate is regular. Rhythm is regular.Breasts: Breast exam was performed while patient was in a supine position and sitting postion. Mastectomy scars show/s no evidence of subcutaneous masses.No dominant masses on the bilateral chest wall . Axillae: Axillae are normal topalpation bilaterally, but no lymphadenopathy of the axillae.Musculo: Walks with a normal gait for age. Upper Extremities: Full ROMbilaterally. Lower Extremities: Full ROM bilaterally.Skin: No jaundice, lesion, rash.Neuro: Upper Extremities: Lower Extremities: Neuro reveals no focal deficits.1. Breast cancer screening, high risk patient2. Carcinoma of left breast in female, estrogen receptor positive, unspecifiedsite of breast [facility]3. Malignant neoplasm of right breast in female, estrogen receptor positive,unspecified site of breast [facility]4. S/P bilateral mastectomy, right in 2014, left in 2008 AM[facility] Misc Supply AMB Misc SupplyAssessment: Patient has a benign exam with no signs/symptoms of recurrence.Follow-up: The patient will follow-up in 1 year no testing needed. Name Value Range Interpretation Code Description Data Zina rce(s) Supporting Document(s) ID Date Data Source [id number] 03/03/2020 05:31:02 PM [facility] Name Value Range Interpretation Code Description Data Zina rce(s) Supporting Document(s) Progress Note [facility] [id number] m [file] [id number]= ID Date Data Source [id number] 03/02/2020 12:00:00 AM EST eCW1 (Formerly [facility]) Name Value Range Interpretation Code Description Data Zina rce(s) Supporting Document(s) Hemoglobin A1c/Hemoglobin.total in Blood 6.6 HEMOGLOBIN A1c W1 (Replaced By [facility]) ID Date Data Source [id number] 02/16/2020 05:33:15 PM EST [facility] Name Value Range Interpretation Code Description Data Zina rce(s) Supporting Document(s) Progress Note [facility] [id number] lbm [file] [id number]/Lue7fyuQ+Olga Lidia [file] [id number]+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 [file] [id number]== Procedure Social History Code Duration Value Status Description Data Source(s ) Smoking 09/01/2020 12:00:00 AM EDT Never Smoker completed Never S moker eCW1 (Replaced By [facility]) Smoking 09/01/2020 12:00:00 AM EDT Never Smoker completed Never S moker eCW1 (Replaced By [facility]) Alcohol intake 08/26/2020 12:00:00 AM EDT Current drinker of al cohol (finding) completed Current drinker of alcohol (finding) [facility] Smoking 03/02/2020 12:00:00 AM EST Never Smoker completed Never S moker eCW1 (Replaced By [facility]) Smoking 03/02/2020 12:00:00 AM EST Never Smoker completed Never S moker eCW1 (Replaced By [facility]) Smoking 03/02/2020 12:00:00 AM EST Never Smoker completed Never S moker eCW1 (Replaced By [facility]) Smoking 03/02/2020 12:00:00 AM EST Never Smoker completed Never S moker eCW1 (Replaced By [facility]) Alcohol intake 02/16/2020 12:00:00 AM EST Current drinker of al cohol (finding) completed Current drinker of alcohol (finding) [facility] Tobacco use and exposure 02/16/2020 12:00:00 AM EST Never used co mpleted Never used [facility] Smoking 02/16/2020 12:00:00 AM EST Never smoker completed Never s [facility] Vital Signs ID Date Data Source UNK Name Value Range Interpretation Code Description Data Source(s) Body height 63 [in_i] 63 [in_i] [facility] ([facility] 5'3" Body weight 232.00 [lb_av] 232.00 [lb_av] MEDEN T ([facility]) Systolic blood pressure 128 mm[Hg] 128 mm[Hg] M EDENT ([facility]) Diastolic blood pressure 81 mm[Hg] 81 mm[Hg] MEDENT ([facility]) Heart rate 59 /min 59 /min [facility] ([facility]) Body mass index (BMI) [Ratio] 41.1 kg/m2 41.1 k g/m2 MEDENT ([facility]) Body weight 105.235 kg 105.235 kg [facility] ([facility]) Body temperature 97.3 [degF] 97.3 [degF] MEDENT ([facility]) Body weight 227 [lb_av] 227 [lb_av] eCW1 ([facility]) Body height 66.5 [in_i] 66.5 [in_i] W1 ([facility]) Body mass index (BMI) [Ratio] 36.09 kg/m2 36.09 kg/m2 eCW1 (Replaced By [facility]) Heart rate 60 /min 60 /min eCW1 ([facility]) Respiratory rate 18 /min 18 /min W1 ([facility]) Body temperature 96.7 [degF] 96.7 [degF] eCW1 ( Replaced By [facility]) Systolic blood pressure 126 mm[Hg] 126 mm[Hg] e CW1 (Replaced By [facility]) Diastolic blood pressure 76 mm[Hg] 76 mm[Hg] eCW1 (Replaced By [facility]) Systolic blood pressure 157 mm[Hg] 157 mm[Hg] [facility] Diastolic blood pressure 90 mm[Hg] 90 mm[Hg] [facility] Heart rate 57 /min 57 /min [facility] Body temperature 36.22 Aniya 36.22 Aniya [facility] Respiratory rate 18 /min 18 /min [facility] Body height 167.6 cm 167.6 cm [facility] Body weight 102.967 kg 102.967 kg [facility] Body mass index (BMI) [Ratio] 36.64 kg/m2 36.64 kg/m2 [facility] Body weight 227 [lb_av] 227 [lb_av] eCW1 ([facility]) Body height 66.5 [in_i] 66.5 [in_i] eCW1 ([facility]) Body mass index (BMI) [Ratio] 36.09 kg/m2 36.09 kg/m2 eCW1 (Replaced By [facility]) Heart rate 61 /min 61 /min eCW1 ([facility]) Respiratory rate 18 /min 18 /min eCW1 ([facility]) Body temperature 96.7 [degF] 96.7 [degF] eCW1 ( Replaced By [facility]) Systolic blood pressure 135 mm[Hg] 135 mm[Hg] e CW1 (Replaced By [facility]) Diastolic blood pressure 81 mm[Hg] 81 mm[Hg] eCW1 (Replaced By [facility]) ID Date Data Source [id number] 03/03/2020 05:31:02 PM [facility] Name Value Range Interpretation Code Description Data Source(s) WEIGHT RECORDED 224 lb 224 lb [facility] ID Date Data Source [id number] 12/11/2019 10:21:00 AM EDT [facility] Name Value Range Interpretation Code Description Data Source(s) WEIGHT 103.87 kilos 103.87 kilos [facility] HEIGHT 167.64 centimeters 167.64 centimeter [facility] WEIGHT 103.87 kilos 103.87 kilos [facility] HEIGHT 167.64 centimeters 167.64 centimeter [facility] Patient Treatment Plan of Care Planned Activity Planned Date Details Description Data Source (s) Hydrochlorothiazide 25 MG Oral Tablet 06/01/2020 12:00:00 AM EDT [facility] Hydrochlorothiazide 12.5 MG Oral Tablet [facility]
--- OUTSIDE RECORDS SUMMARY | 2020-12-17 11:49 | CCD | Continuity of Care Document ---
Author Author Elva ROWLEY M.D. Organization Unknown Address [address] [place] [id number] Phone [phone] Care Team Providers Care Maintenance Carpenter Name Role Phone Carloz Lainez M.D. [facility] [phone] Problems Active Problems Provider Date Screening for malignant neoplasm of colon Villa felix M.D. Onset: 10/28/2020 Social History Type Date Description Comments Sex Unknown ETOH Use Occasionally Tobacco Use Start: Unknown Patient has never smoked Allergies, Adverse Reactions, Alerts Description No Known Drug Allergies Medications Active Medications SIG Qnty Indications Ordering Provide r Date Omeprazole 40mg Capsules DR 1 cap by mouth every morning 90caps Villa Rowley M.D. 021 Sutab [id number] Tablets as directed 1box Villa Rowley M.D. 10/28/2020 Letrozole 2.5mg Tablets Take One Tablet By Mouth Daily Unknown Travoprost (Praveena Free) 0.004% Solut ion Instill One Drop In Each Eye Every Day AT Bedtime Unknown Hydrochlorothiazide 25mg Tablets Take One Tablet By Mouth In The Morning Once A Day Unknow n Lisinopril 40mg Tablets Take One Tablet By Mouth Once A Day Unknown Rosuvastatin Calcium 40mg Tablets Take One Tablet By Mouth Daily Unknown Bisoprolol Fumarate 5mg Tablets Take One Tablet By Mouth Once A Day Unknown Aspirin Ec Low Dose 81mg Tablets DR Unknown Alprazolam 0.5mg Tablets Unknown Immunizations Description No Information Available Vital Signs Date Vital Result Comment 10/28/2020 11:12am Height 63 inches 5'3" Weight 232.00 lb BP Systolic 128 mmHg BP Diastolic 81 mmHg Heart Rate 59 /min BMI (Body Mass Index) 41.1 kg/m2 Weight 105.235 kg Body Temperature 97.3 F Results Description No Information Available Procedures Date Code Description Status 10/28/2020 50039 Office/Outpatient New Low MDM 30 -44 Minutes Completed Medical Devices Description No Information Available Encounters Type Date Location Provider Dx Diagnosis Office Visit 10/28/2020 10:45a Main Office Villa Rowley M.D. Z 12.11 Encounter for screening for malignant neoplasm of colon K21.9 Gastro-esophageal reflux dis ease without esophagitis Assessments Date Code Description Provider 10/28/2020 Z12.11 Screening for malignant neoplasm of colon Villa Rowley M.D. 10/28/2020 K21.9 Gastroesophageal reflux disease Villa Rowley M.D. Plan of Treatment Future Appointment(s):* 12/17/2020 12:30 pm - Villa Rowley M.D. at Main Office 10/28/2020 - Villa Rowley M.D.* Z12.11 Screening for malignant neoplasm of colon* Comments:* 70 yo wf who presents for a screening colonoscopy/egd for heartburn. No c/o abdominal pain, weight loss, change in bowel habits, or rectal bleeding. No family h/o colon cancer. No h/o chest pain, or sob. Plan:1.Schedule patient for a colonoscopy + egd.2.Informed consent given to the patient.3.Pt. advised to stop aspirin,plavix, and anticoagulants at least 3 to 7 days prior to the procedure. * K21.9 Gastroesophageal reflux disease* Comments:* As above. Functional Status Description No Information Available Mental Status Description No Information Available Referrals Description No Information Available
--- OUTSIDE RECORDS SUMMARY | 2020-12-17 11:49 | CCD ---
Author Author [facility] Organization [facility] Address Unknown Phone Unavailable Care Team Providers Care Household Appliances Service Technician Name Role Phone Carloz Lainez Unavailable PROBLEMS Type Condition ICD9-CM Code [id number] Code Onset Dates Condition S tatus W/U Status Risk SNOMED Code Notes Problem Mixed hyperlipidemia E78.2 Active confirmed 171427926 Problem Factor V Leiden D68.51 Active confirmed 3070 32856 Problem Essential hypertension I10 Active confirmed 66530648 Problem Plantar wart of left foot B07.0 Active confirmed 33635906 Problem Chronic GERD K21.9 Active confirmed 6725163 09 Problem Type 2 diabetes mellitus wit hout complication, without long-term current use of insulin E11.9 Active confirmed 575636420 Problem Screen for colon cancer Z12.11 Active confirmed 512754051 Problem BMI 36.0-36.9,adult Z68.36 Active confirmed 672790617 Problem Asymptomatic varicose veins of left lower extremity I83.92 Active confirmed 64108110 Problem Personal history of breast cancer Z85.3 Active confirmed 100561757 Problem Primary osteoarthritis of both knees M17.0 Act andre confirmed 831910439 Problem History of right-sided carotid endarterectomy Z98. 890 Active confirmed 653992060 Problem Gastroesophageal reflux disease, esophagitis pre sence not specified K21.9 Active confirmed 550155127 Problem S/P bilateral mastectomy Z90.13 Active confirmed 219905168 ALLERGIES Allergen (clinical drug ingredient) Drug/Non Drug Allergy do cumented on EMR Reaction Allergy Type Onset Date Status Adhesive Tape Rash Drug Allergy Active Lipitor Heart Palpitations Non Drug Allergy Active ENCOUNTERS from 1950 to 2020-11-16 Encounter Location Date Provider Diagnosis [facility] Jasen BELLO [phone] [place] [address] Nov, 2020 Carloz Lainez Essential hypertension I10 IMMUNIZATIONS Vaccine Route Administration Date Status Shingrix Pharmacy Given Unknown Nov 24, 2019 Administ ered Influenza 18 yrs & older Flublok IM Intramuscular Dec 28, 2017 Administered Influenza 18 yrs & older Flublok IM Intramuscular Dec 16, 2018 Administered Influenza (High Dose 65 & up) IM Intramuscular Dec 08, 2014 A dministered Influenza (High Dose 65 & up) IM Intramuscular Dec 10, 2015 A dministered Influenza (High Dose 65 & up) IM Intramuscular Dec 04, 2016 A dministered Influenza 6mo & up Fluzone IM Intramuscular Jan 20, 2010 Admi nistered Zoster 0.65mL Zostavax SC Subcutaneous Mar 08, 2012 Administe red Pneumococcal Adult 0.5mL Pneumovax 23 IM Intramuscular July 27 016 Administered TDAP IM Intramuscular Feb 24, 2010 Administered Pneumococcal 0.5mL Prevnar 13 IM Intramuscular Feb 20, 2014 A dministered Influenza 6mo & up Fluzone IM Intramuscular Jan 01, 2014 Admi nistered Influenza 6mo & up Fluzone IM Intramuscular Dec 26, 2012 Admi nistered Influenza 6mo & up Fluzone IM Intramuscular Dec 12, 2011 Admi nistered Influenza 6mo & up Fluzone IM Intramuscular Dec 29, 2010 Admi nistered SOCIAL HISTORY Tobacco Use: Social History Observation Description Date Details (start date - stop date) Never Smoker Sex Assigned At : Social History Observation Description Sex Assigned At Unknown Audit Question Answer Notes Total Score: 1 Interpretation: Alcohol Education Anabaptist: Question Answer Notes Anabaptist No confucianism beliefs that would impact health care. Sexual Hx: Question Answer Notes Had sex in the last 12 months (vaginal, oral, or anal)? Yes LMP: 2008 Have you ever had an STD? No with Men only Use protection? No Drug and Alcohol Question Answer Notes Total Score: 0 Interpretation: No problems reported BMI Care Goal Follow-Up Question Answer Notes Above Normal BMI Follow-Up Dietary management educatio n, guidance, and counseling Tobacco Use: Question Answer Notes Are you a: never smoker never smoker Additional Findings: Tobacco Non-User no REASON FOR REFERRAL No Information VITAL SIGNS No information MEDICATIONS Medication SIG (Take, Route, Frequency, Duration) Notes Start Da te End Date Status Letrozole 2.5 MG 1 tablet Orally Once a day Active Famotidine 40 MG 1 tablet at bedtime Orally Once a day Aug, Active Motrin IB 200 MG 3 tablet with food or milk a s needed Orally Three times a day prn Active Calcium + D3 600-200 MG-UNIT 1 tablet with a meal Orally Bid Active Bisoprolol Fumarate 5 mg 1 tab Orally Once a day Active ALPRAZolam 0.5 MG 1 tab(s) Orally tid prn Dec, Active Travatan 0.004 % 1 gtt each eye Ophthalmic Once a day Active Lisinopril 40 MG 1 tablet Orally Once a day Active Rosuvastatin Calcium 40 MG 1 tablet Orally Daily Active Shingrix 50 MCG 1 injection Intramuscular on ce, then repeat in 2-6 mos for 1 dose(s) Aug, Active Aspir-81 81 MG 1 tablet Orally bid A ctive hydroCHLOROthiazide 25 MG 1 tablet in the morning Orally Onc e a day for 90 days Nov, Active PROCEDURES No Information RESULTS No Results REASON FOR VISIT script MEDICAL (GENERAL) HISTORY Type Description Date Medical History Osteoporosis Medical History Lt side breast cancer 2008 (ER neg, CT n eg, HER-2 pos) Medical History 2007 Severe venous insuffic iency left lower leg, moderate on the right ([facility]) Medical History Mixed hyperlipidemia Medical History Unspecified essential hypertension Medical History Mixed hyperlipidemia Medical History Essential hypertension Medical History Factor V Leiden Medical History Personal history of breast cancer Medical History Acute venous embolism and th rombosis of superficial veins of upper extremity Medical History Cataracts Surgical History Tonsillectomy Surgical History Tubal ligation 1984 Surgical History Left mastectomy may 2008 Surgical History Right breast biopsy 10/28/2014 Surgical History right breast mastectomy (Dr. Lal, Dr. Yusuf ) 11/2014 Surgical History Colonoscopy 2009 Surgical History Cartoid Surgrey 06/06/2018 Surgical History right cataract in [facility] 01/2019 Surgical History left cataract in [facility] 01/2019 Hospitalization History Tonsilectomy Hospitalization History Tubal ligation 1984 Hospitalization History Left mastectomy, Dr. Lal may 2008 Goals Section No Information Health Concerns No Information MEDICAL EQUIPMENT No Information MENTAL STATUS No Information FUNCTIONAL STATUS No Information ASSESSMENTS Encounter Date Diagnosis Assessment Notes Treatment Notes Treatm ent Clinical Notes Nov, Essential hypertension (ICD-10 - I10) PLAN OF TREATMENT Medication Medication Name Sig Start Date Stop Date Letrozole 2.5 MG 1 tablet Orally Once a day Shingrix 50 MCG 1 injection Intramuscular on ce, then repeat in 2-6 mos for 1 dose(s) Aug, Aspir-81 81 MG 1 tablet Orally bid Motrin IB 200 MG 3 tablet with food or milk a s needed Orally Three times a day prn Lisinopril 40 MG 1 tablet Orally Once a day Rosuvastatin Calcium 40 MG 1 tablet Orally Daily Calcium + D3 600-200 MG-UNIT 1 tablet with a meal Orally Bid Famotidine 40 MG 1 tablet at bedtime Orally Once a day Aug, 020 Bisoprolol Fumarate 5 mg 1 tab Orally Once a day ALPRAZolam 0.5 MG 1 tab(s) Orally tid prn Dec, Travatan 0.004 % 1 gtt each eye Ophthalmic Once a day hydroCHLOROthiazide 25 MG 1 tablet in the morning Orally Onc e a day for 90 days Nov, Next Appt Details Provider Name:Carloz Mooney Lainez, 2021-03-03 09 :30:00 AM, [address] , , [place], [address], Insurance Providers Payer Name Payer Address Payer Phone Insured Name Patient Relati onship to Insured Coverage Start Date Coverage End Date MEDICARE Part A and B [address] [facility] [id number] [employer] [facility] [address] [address] [facility] [phone] [employer] [id number]
[2020-12-17] MEDS ORDERED: propofoL 500 MG/50 ML VIAL As Ordered ONE (12:39)
[2020-12-17] MEDS ORDERED: LIDOCAINE 2% 100MG/5ML SDV (FOR ANES.) As Ordered ONE (12:39)
[2020-12-17] MEDS ORDERED: fentaNYL 100 MCG/2 ML INJECTION (J3010) As Ordered ONE (12:39)
--- NOTE | 2020-12-17 14:00 | ROOR ---
Patient Name: Elva Hilario Procedure Date: 12/17/2020 1:43 PM Date of : 1950 Age: 70 Room: [facility] Gender: Female Note Status: Finalized Procedure: Upper Endoscopy + Biopsies Indications: Heartburn, Exclusion of Andres's esophagus Providers: Villa Rowley MD Referring MD: Carloz Lainez MD Requesting Provider: Medicines: Monitored Anesthesia Care Complications: No immediate complications. Procedure: Pre-Anesthesia Assessment: - The heart rate, respiratory rate, oxygen saturations, blood pressure, adequacy of pulmonary ventilation, and response to care were monitored throughout the procedure. The Endoscope was introduced through the mouth, and advanced to the second part of duodenum. The upper GI endoscopy was accomplished without difficulty. The patient tolerated the procedure well. Findings: The Z-line was regular and was found 40 cm from the incisors. Multiple biopsies were obtained with cold forceps for evaluation to rule out Andres's Esophagus randomly at the gastroesophageal junction. A small hiatal hernia was present. No other significant abnormalities were identified in a careful examination of the stomach. The exam of the duodenum was otherwise normal. Impression: - Z-line regular, 40 cm from the incisors. - Small hiatal hernia. - Multiple biopsies were obtained at the gastroesophageal junction. - The examination was otherwise normal. Recommendation: - Patient has a contact number available for emergencies. The signs and symptoms of potential delayed complications were discussed with the patient. Return to normal activities tomorrow. Written discharge instructions were provided to the patient. - High fiber diet. - Discharge patient to home. - Continue present medications. - Await pathology results. - Telephone GI clinic for pathology results in 1 week. - Return to referring physician. - Repeat upper endoscopy for surveillance based on pathology results. - The findings and recommendations were discussed with the patient. Procedure Code(s): --- Professional --- 03513, Esophagogastroduodenoscopy, flexible, transoral; with biopsy, single or multiple Diagnosis Code(s): --- Professional --- K44.9, Diaphragmatic hernia without obstruction or gangrene R12, Heartburn CPT copyright 2019 [employer]. All rights reserved. The codes documented in this report are preliminary and upon clerical methods analyst review may be revised to meet current compliance requirements. Villa Rowley MD Villa Rowley MD 12/17/2020 1:59:49 PM Electronically signed by Villa Rowley MD Number of Addenda: 0 Note Initiated On: 12/17/2020 1:43 PM Estimated Blood Loss: Estimated blood loss: none.
--- NOTE | 2020-12-17 14:21 | ROOR ---
Patient Name: Elva Hilario Procedure Date: 12/17/2020 1:44 PM Date of : 1950 Age: 70 Room: [facility] Gender: Female Note Status: Finalized Procedure: Total Colonoscopy to Cecum + Cold Snare Polypectomy + Hemoclips Indications: Screening for colorectal malignant neoplasm Providers: Villa Rowley MD Referring MD: Carloz Lainez MD Requesting Provider: Medicines: Monitored Anesthesia Care Complications: No immediate complications. Procedure: Pre-Anesthesia Assessment: - The heart rate, respiratory rate, oxygen saturations, blood pressure, adequacy of pulmonary ventilation, and response to care were monitored throughout the procedure. The Colonoscope was introduced through the anus and advanced to the cecum, identified by appendiceal orifice and ileocecal valve. The colonoscopy was performed without difficulty. The patient tolerated the procedure well. The quality of the bowel preparation was excellent. Findings: The perianal and digital rectal examinations were normal. Non-bleeding internal hemorrhoids were found during retroflexion. The hemorrhoids were small and Grade I (internal hemorrhoids that do not prolapse). A medium polyp was found in the mid ascending colon. The polyp was carpet-like. The polyp was removed with a cold snare. Resection and retrieval were complete. To prevent bleeding after the polypectomy, two hemostatic clips were successfully placed. There was no bleeding at the end of the procedure. The exam was otherwise without abnormality on direct and retroflexion views. Impression: - Non-bleeding internal hemorrhoids. - One medium polyp in the mid ascending colon, removed with a cold snare. Resected and retrieved. Clips were placed. - The examination was otherwise normal on direct and retroflexion views. - The exam was otherwise normal to the cecum. Recommendation: - Patient has a contact number available for emergencies. The signs and symptoms of potential delayed complications were discussed with the patient. Return to normal activities tomorrow. Written discharge instructions were provided to the patient. - High fiber diet. - Discharge patient to home. - Continue present medications. - Await pathology results. - Telephone GI clinic for pathology results in 1 week. - Repeat colonoscopy in 3 years for surveillance based on pathology results. - Return to referring physician. - The findings and recommendations were discussed with the patient. Procedure Code(s): --- Professional --- 14103, Colonoscopy, flexible; with removal of tumor(s), polyp(s), or other lesion(s) by snare technique Diagnosis Code(s): --- Professional --- Z12.11, Encounter for screening for malignant neoplasm of colon K64.0, First degree hemorrhoids K63.5, Polyp of colon CPT copyright 2019 [employer]. All rights reserved. The codes documented in this report are preliminary and upon casino floorperson review may be revised to meet current compliance requirements. Villa Rowley MD Villa Rowley MD 12/17/2020 2:21:24 PM Electronically signed by Villa Rowley MD Number of Addenda: 0 Note Initiated On: 12/17/2020 1:44 PM Estimated Blood Loss: Estimated blood loss: none.
[2020-12-17 14:41] VITALS: BP 136/66
== END 2020-12-17 14:44 | disposition home or self-care (01) ==
LOC: M OPP 11:44
PROVIDERS: ATTEND Internal Medicine Gastroenterology
DX: Z12.11 Encounter for screening for malignant neoplasm of colon (principal); D12.2 Benign neoplasm of ascending colon; K64.0 First degree hemorrhoids; J44.9 Chronic obstructive pulmonary disease, unspecified; R12 Heartburn; Z85.3 Personal history of malignant neoplasm of breast; Z92.21 Personal history of antineoplastic chemotherapy; Z86.718 Personal history of other venous thrombosis and embolism; Z79.82 Long term (current) use of aspirin; Z79.899 Other long term (current) drug therapy
CPT/HCPCS: 43239; 45385; 88305; J3010

== ENCOUNTER → 2021-03-03 | Outpatient (REF) | payer MEDICARE, OTHER ==
[~2021-03-03] MED LIST changes: -NS 1,000 ML IV ONE; -OMEP-221 PO; +OMEP40CA5 PO
[2021-03-03 16:15] LABS: APPEARANCE, URINE HAZY (CLEAR); BACTERIA, URINE AUTO 1+ (NEGATIVE); BILIRUBIN, URINE AUTO NEGATIVE (NEGATIVE); BLOOD, URINE BLOOD 2+ (NEGATIVE); COLOR, URINE YELLOW (YELLOW); GLUCOSE, URINE (UA) AUTO NEGATIVE (NEGATIVE); KETONE, URINE AUTO NEGATIVE (NEGATIVE); LEUKOCYTE ESTERASE, URINE AUTO 3+ (NEGATIVE); MUCUS, URINE SMALL (NEGATIVE); NITRITE, URINE AUTO NEGATIVE (NEGATIVE); PROTEIN, URINE AUTO NEGATIVE (NEGATIVE); RBC, URINE AUTO 13 /HPF (0-3); SPECIFIC GRAVITY URINE AUTO 1.021 (1.002-1.035); SQUAMOUS EPITHELIAL CELL UR AU 2 /HPF (0-6); UROBILINOGEN, URINE AUTO 0.2 mg/dL (0.0-2.0); WBC, URINE AUTO 51 /HPF (0-3)
[2021-03-03 16:20] LABS: HEMATOCRIT 47.2 % (36.0-47.0); HEMOGLOBIN 15.1 g/dl (12.0-15.5); MEAN CORPUSCULAR HEMOGLOBIN 28.3 pg (27.0-33.0); MEAN CORPUSCULAR VOLUME 88.6 fl (80.0-96.0); PLATELET COUNT, AUTOMATED 278 10^3/uL (150-450); RED BLOOD COUNT 5.33 10^6/uL (4.00-5.40); WHITE BLOOD COUNT 11.4 10^3/uL (4.0-10.0)
[2021-03-03 16:36] LABS: HEMOGLOBIN A1c 6.8 %
[2021-03-03 16:52] LABS: ALBUMIN 3.8 GM/DL (3.2-5.2); ALT/SGPT 35 U/L (12-78); BILIRUBIN,TOTAL 0.6 MG/DL (0.2-1.0); BLOOD UREA NITROGEN 23 MG/DL (7-18); CALCIUM LEVEL 9.9 MG/DL (8.8-10.2); CARBON DIOXIDE LEVEL 31 MEQ/L (21-32); CHLORIDE LEVEL 101 MEQ/L (98-107); CREATININE FOR GFR 0.94 MG/DL (0.55-1.30); GLOMERULAR FILTRATION RATE > 60.0 (>39); GLUCOSE, FASTING 137 MG/DL (70-100); POTASSIUM SERUM 4.2 MEQ/L (3.5-5.1); SODIUM LEVEL 137 MEQ/L (136-145); TOTAL PROTEIN 7.3 GM/DL (6.4-8.2)
[2021-03-03 16:57] LABS: MALB URINE SIEMENS 27.1 MG/L; MAU/CREAT RATIO 16.6 MCG/MG (0.0-30.0)
== END ==
LOC: M SFHCCLAY 11:10
PROVIDERS: ATTEND Family Medicine
DX: E78.2 Mixed hyperlipidemia (principal); I10 Essential (primary) hypertension; E11.9 Type 2 diabetes mellitus without complications; Z85.3 Personal history of malignant neoplasm of breast

== ENCOUNTER → 2021-08-30 | Outpatient (REF) | payer MEDICARE, OTHER ==
[2021-08-30 16:16] LABS: ALBUMIN 3.8 GM/DL (3.2-5.2); ALT/SGPT 31 U/L (12-78); BILIRUBIN,TOTAL 0.6 MG/DL (0.2-1.0); BLOOD UREA NITROGEN 21 MG/DL (7-18); CALCIUM LEVEL 10.3 MG/DL (8.8-10.2); CARBON DIOXIDE LEVEL 32 MEQ/L (21-32); CHLORIDE LEVEL 101 MEQ/L (98-107); CHOLESTEROL LEVEL 166 MG/DL (<200); CHOLESTEROL RISK RATIO 3.772 (<5); CREATININE FOR GFR 0.94 MG/DL (0.55-1.30); FREE T4 0.89 NG/DL (0.76-1.46); GLOMERULAR FILTRATION RATE > 60.0 (>39); GLUCOSE, FASTING 122 MG/DL (70-100); HDL CHOLESTEROL 44 MG/DL (>40); LDL CHOLESTEROL 86 MG/DL (<100); NON-HDL-C 122 MG/DL; POTASSIUM SERUM 5.1 MEQ/L (3.5-5.1); SODIUM LEVEL 139 MEQ/L (136-145); TOTAL PROTEIN 7.5 GM/DL (6.4-8.2); TRIGLYCERIDES LEVEL 182 MG/DL (<150)
[2021-08-30 16:45] LABS: MALB URINE SIEMENS 19.7 MG/L; MAU/CREAT RATIO 9.9 MCG/MG (0.0-30.0)
== END ==
LOC: M SFHCCLAY 12:22
PROVIDERS: ATTEND Family Medicine
DX: K21.9 Gastro-esophageal reflux disease without esophagitis (principal); E11.9 Type 2 diabetes mellitus without complications; I10 Essential (primary) hypertension; E78.2 Mixed hyperlipidemia

== ENCOUNTER → 2022-02-14 | Outpatient (REF) | payer MEDICARE, OTHER ==
[2022-02-14 18:09] LABS: HEMOGLOBIN A1c 6.9 % (4.0-6.0)
[2022-02-14 18:24] LABS: BLOOD UREA NITROGEN 25 MG/DL (9-23); CALCIUM LEVEL 9.6 MG/DL (8.3-10.6); CARBON DIOXIDE LEVEL 31 MMOL/L (20-31); CHLORIDE LEVEL 100 MMOL/L (98-107); GLOMERULAR FILTRATION RATE > 60.0 (>39); GLUCOSE, FASTING 138 MG/DL (74-106); POTASSIUM SERUM 4.6 MMOL/L (3.5-5.1); SODIUM LEVEL 137 MMOL/L (136-145)
== END ==
LOC: M SFHCCLAY 11:07
PROVIDERS: ATTEND Family Medicine
DX: E11.9 Type 2 diabetes mellitus without complications (principal)

== ENCOUNTER → 2022-08-15 | Outpatient (REF) | payer MEDICARE, OTHER ==
[2022-08-15 12:09] LABS: ALBUMIN 3.7 G/DL (3.2-5.2); BILIRUBIN,TOTAL 0.6 MG/DL (0.3-1.2); CHOLESTEROL RISK RATIO 3.6 (<5); CREATININE FOR GFR 0.97 MG/DL (0.55-1.30); GLOMERULAR FILTRATION RATE 59.9 (>39); HDL CHOLESTEROL 42.2 MG/DL (>40); LDL CHOLESTEROL 72.6 MG/DL (<100); NON-HDL-C 109.8 MG/DL; POTASSIUM SERUM 4.1 MMOL/L (3.5-5.1); TOTAL PROTEIN 6.6 G/DL (5.7-8.2)
[2022-08-15 13:08] LABS: HEMOGLOBIN A1c 7.7 % (4.0-6.0)
[2022-08-15 19:26] LABS: CREATININE, URINE 184.7 MG/DL
[2022-08-15 19:27] LABS: MAU/CREAT RATIO 12.9 MCG/MG (0.0-30.0)
== END ==
LOC: M SFHCCLAY 09:11
PROVIDERS: ATTEND Family Medicine
DX: E11.9 Type 2 diabetes mellitus without complications (principal); I10 Essential (primary) hypertension; Z98.890 Other specified postprocedural states

== ENCOUNTER → 2022-09-28 | Outpatient (CLI) | payer MEDICARE, OTHER ==
[~2022-09-28] MED LIST changes: +CALC500C16 PO; +METF-838
== END ==
LOC: M WHC 10:41
PROVIDERS: ATTEND Specialist
DX: Z13.820 Encounter for screening for osteoporosis (principal); C50.919 Malignant neoplasm of unspecified site of unspecified female breast; M85.88 Other specified disorders of bone density and structure, other site

== ENCOUNTER → 2023-02-16 | Outpatient (REF) | payer MEDICARE, OTHER ==
[2023-02-16 14:08] LABS: HEMOGLOBIN A1c 6.2 % (4.0-6.0)
[2023-02-16 14:10] LABS: BLOOD UREA NITROGEN 22 MG/DL (9-23); CARBON DIOXIDE LEVEL 30 MMOL/L (20-31); CHLORIDE LEVEL 101 MMOL/L (98-107); CREATININE FOR GFR 0.87 MG/DL (0.55-1.30); GLOMERULAR FILTRATION RATE > 60.0 (>39); GLUCOSE, FASTING 125 MG/DL (74-106); POTASSIUM SERUM 4.3 MMOL/L (3.5-5.1); SODIUM LEVEL 140 MMOL/L (136-145)
== END ==
LOC: M SFHCCLAY 08:05
PROVIDERS: ATTEND Family Medicine
DX: E11.9 Type 2 diabetes mellitus without complications (principal); I10 Essential (primary) hypertension; Z98.890 Other specified postprocedural states

== ENCOUNTER → 2023-07-25 | Outpatient (REF) | payer MEDICARE, OTHER ==
[~2023-07-25] MED LIST changes: -ROSU40TA4 PO; +ROSU40TA63 PO
[2023-07-25 17:21] LABS: BLOOD UREA NITROGEN 17 MG/DL (9-23); CALCIUM LEVEL 9.9 MG/DL (8.3-10.6); CARBON DIOXIDE LEVEL 31 MMOL/L (20-31); CHLORIDE LEVEL 102 MMOL/L (98-107); CREATININE FOR GFR 0.83 MG/DL (0.55-1.30); GLOMERULAR FILTRATION RATE > 60.0 (>39); GLUCOSE, FASTING 113 MG/DL (74-106); POTASSIUM SERUM 3.9 MMOL/L (3.5-5.1); SODIUM LEVEL 140 MMOL/L (136-145)
[2023-07-25 18:08] LABS: HEMOGLOBIN A1c 6.3 % (4.0-6.0)
== END ==
LOC: M SFHCCLAY 11:07
PROVIDERS: ATTEND Family Medicine
DX: E11.9 Type 2 diabetes mellitus without complications (principal)

== ENCOUNTER → 2023-09-20 | Outpatient (REF) | payer MEDICARE, OTHER ==
[~2023-09-20] MED LIST changes: +NEBI5TAB; +XARE20TA
[2023-09-20 18:06] LABS: BASO # 0.1 10^3/uL (0.0-0.2); BASO % 0.6 % (0.0-1.0); EOS # 0.3 10^3/uL (0.0-0.5); EOS % 2.4 % (0.0-3.0); HEMATOCRIT 44.7 % (36.0-47.0); HEMOGLOBIN 14.6 g/dl (12.0-15.5); LYMPH # 2.6 10^3/uL (1.5-5.0); LYMPH % 24.9 % (24.0-44.0); MEAN CORPUSCULAR HEMOGLOBIN 29.1 pg (27.0-33.0); MEAN CORPUSCULAR HGB CONC 32.7 g/dl (32.0-36.5); MONO # 0.6 10^3/uL (0.0-0.8); MONO % 6.1 % (2.0-8.0); NEUTROPHILS # 6.8 10^3/uL (1.5-8.5); NEUTROPHILS % 65.5 % (36.0-66.0); PLATELET COUNT, AUTOMATED 261 10^3/uL (150-450); RED BLOOD COUNT 5.02 10^6/uL (4.00-5.40); WHITE BLOOD COUNT 10.4 10^3/uL (4.0-10.0)
[2023-09-20 18:29] LABS: ALBUMIN 3.4 G/DL (3.2-5.2); ALKALINE PHOSPHATASE 88 U/L (46-116); ALT/SGPT 28 U/L (7.0-40); AST/SGOT 15 U/L (<34); BILIRUBIN,TOTAL 0.6 MG/DL (0.3-1.2); BLOOD UREA NITROGEN 19 MG/DL (9-23); CALCIUM LEVEL 9.6 MG/DL (8.3-10.6); CARBON DIOXIDE LEVEL 31 MMOL/L (20-31); CHLORIDE LEVEL 103 MMOL/L (98-107); CREATININE FOR GFR 0.84 MG/DL (0.55-1.30); GLOMERULAR FILTRATION RATE > 60.0 (>39); GLUCOSE, FASTING 119 MG/DL (74-106); POTASSIUM SERUM 4.6 MMOL/L (3.5-5.1); SODIUM LEVEL 139 MMOL/L (136-145); TOTAL PROTEIN 6.3 G/DL (5.7-8.2)
== END ==
LOC: M LABDRAWC 17:14
PROVIDERS: ATTEND Specialist
DX: C50.919 Malignant neoplasm of unspecified site of unspecified female breast (principal)

== ENCOUNTER 2023-12-23 16:08 | Emergency (ER) | payer MEDICARE, OTHER ==
[~2023-12-23] VITALS: Ht 167.6 cm; Wt 95.1 kg
[~2023-12-23 16:08] MED LIST changes: -NEBI5TAB; +NEBI5TAB2; -ROSU40TA63 PO; +ROSU40TA81 PO
[2023-12-23 18:31] LABS: BASO # 0.1 10^3/uL (0.0-0.2); BASO % 0.5 % (0.0-1.0); EOS # 0.2 10^3/uL (0.0-0.5); EOS % 1.8 % (0.0-3.0); HEMATOCRIT 45.8 % (36.0-47.0); HEMOGLOBIN 15.2 g/dl (12.0-15.5); LYMPH # 2.5 10^3/uL (1.5-5.0); LYMPH % 19.4 % (24.0-44.0); MEAN CORPUSCULAR HEMOGLOBIN 29.5 pg (27.0-33.0); MEAN CORPUSCULAR HGB CONC 33.2 g/dl (32.0-36.5); MEAN CORPUSCULAR VOLUME 88.8 fl (80.0-96.0); MONO # 0.8 10^3/uL (0.0-0.8); MONO % 5.9 % (2.0-8.0); NEUTROPHILS # 9.5 10^3/uL (1.5-8.5); NEUTROPHILS % 71.9 % (36.0-66.0); PLATELET COUNT, AUTOMATED 277 10^3/uL (150-450); RED BLOOD COUNT 5.16 10^6/uL (4.00-5.40); WHITE BLOOD COUNT 13.1 10^3/uL (4.0-10.0)
[2023-12-23 18:39] LABS: ERYTHROCYTE SEDIMENTATION RATE 21 mm/hr (0-30)
[2023-12-23 19:04] LABS: C REACTIVE PROTEIN QUANTITATIV < 0.40 MG/DL (<1.0)
[2023-12-23 19:05] LABS: BLOOD UREA NITROGEN 19 MG/DL (9-23); CALCIUM LEVEL 9.9 MG/DL (8.3-10.6); CARBON DIOXIDE LEVEL 31 MMOL/L (20-31); CHLORIDE LEVEL 102 MMOL/L (98-107); CREATININE FOR GFR 0.74 MG/DL (0.55-1.30); GLOMERULAR FILTRATION RATE > 60.0 (>39); GLUCOSE, FASTING 139 MG/DL (74-106); POTASSIUM SERUM 3.7 MMOL/L (3.5-5.1); SODIUM LEVEL 137 MMOL/L (136-145)
[2023-12-23 20:20] VITALS: BP 182/94; TEMP 97.2; O2SAT 96
== END 2023-12-23 20:43 | disposition home or self-care (01) ==
LOC: M ED 16:08
DX: I82.532 Chronic embolism and thrombosis of left popliteal vein (principal); E11.9 Type 2 diabetes mellitus without complications; I10 Essential (primary) hypertension; K21.9 Gastro-esophageal reflux disease without esophagitis; D68.51 Activated protein C resistance; Z91.048 Other nonmedicinal substance allergy status; Z79.82 Long term (current) use of aspirin; Z79.899 Other long term (current) drug therapy; Z79.811 Long term (current) use of aromatase inhibitors

== ENCOUNTER → 2024-02-20 | Outpatient (REF) | payer MEDICARE, OTHER ==
[2024-02-20 17:12] LABS: ALBUMIN 3.7 G/DL (3.2-5.2); ALKALINE PHOSPHATASE 83 U/L (35-104); ALT/SGPT 25 U/L (7.0-40); AST/SGOT 15 U/L (<34); BILIRUBIN,TOTAL 0.5 MG/DL (0.3-1.2); BLOOD UREA NITROGEN 20 MG/DL (9-23); CALCIUM LEVEL 10.4 MG/DL (8.3-10.6); CARBON DIOXIDE LEVEL 30 MMOL/L (20-31); CHLORIDE LEVEL 100 MMOL/L (98-107); CHOLESTEROL LEVEL 154 MG/DL (<200); CHOLESTEROL RISK RATIO 3.08 (<5); CREATININE FOR GFR 0.77 MG/DL (0.55-1.30); GLOMERULAR FILTRATION RATE > 60.0 (>39); GLUCOSE, FASTING 141 MG/DL (74-106); LDL CHOLESTEROL 57.8 MG/DL (<100); SODIUM LEVEL 139 MMOL/L (136-145); TOTAL PROTEIN 7.1 G/DL (5.7-8.2); TRIGLYCERIDES LEVEL 231 MG/DL (<150)
[2024-02-20 17:14] LABS: THYROID STIMULATING HORMONE 1.107 uIU/ML (0.55-4.78)
[2024-02-20 17:36] LABS: HEMOGLOBIN A1c 6.4 % (4.0-6.0)
[2024-02-20 17:39] LABS: BASO # 0.1 10^3/uL (0.0-0.2); BASO % 0.5 % (0.0-1.0); EOS # 0.2 10^3/uL (0.0-0.5); EOS % 2.1 % (0.0-3.0); HEMATOCRIT 47.5 % (36.0-47.0); HEMOGLOBIN 15.4 g/dl (12.0-15.5); LYMPH # 2.5 10^3/uL (1.5-5.0); LYMPH % 22.9 % (24.0-44.0); MEAN CORPUSCULAR HEMOGLOBIN 28.8 pg (27.0-33.0); MEAN CORPUSCULAR HGB CONC 32.4 g/dl (32.0-36.5); MONO # 0.8 10^3/uL (0.0-0.8); MONO % 7.3 % (2.0-8.0); NEUTROPHILS # 7.4 10^3/uL (1.5-8.5); NEUTROPHILS % 66.5 % (36.0-66.0); PLATELET COUNT, AUTOMATED 321 10^3/uL (150-450); RED BLOOD COUNT 5.34 10^6/uL (4.00-5.40); WHITE BLOOD COUNT 11.1 10^3/uL (4.0-10.0)
== END ==
LOC: M SFHCCLAY 11:03
PROVIDERS: ATTEND Nurse Practitioner Family
DX: Z00.00 Encounter for general adult medical examination without abnormal findings (principal); E11.9 Type 2 diabetes mellitus without complications; I82.4Y2 Acute embolism and thrombosis of unspecified deep veins of left proximal lower extremity; E78.2 Mixed hyperlipidemia; I10 Essential (primary) hypertension; D68.51 Activated protein C resistance; Z85.3 Personal history of malignant neoplasm of breast; K21.9 Gastro-esophageal reflux disease without esophagitis

== ENCOUNTER → 2024-02-29 | Outpatient (REF) | payer MEDICARE, OTHER ==
[2024-02-29 17:57] LABS: BASO # 0.1 10^3/uL (0.0-0.2); BASO % 0.5 % (0.0-1.0); EOS # 0.3 10^3/uL (0.0-0.5); EOS % 2.7 % (0.0-3.0); HEMATOCRIT 46.2 % (36.0-47.0); HEMOGLOBIN 15.1 g/dl (12.0-15.5); LYMPH # 2.7 10^3/uL (1.5-5.0); LYMPH % 26.2 % (24.0-44.0); MEAN CORPUSCULAR HEMOGLOBIN 29.1 pg (27.0-33.0); MEAN CORPUSCULAR HGB CONC 32.7 g/dl (32.0-36.5); MONO # 0.7 10^3/uL (0.0-0.8); MONO % 6.2 % (2.0-8.0); NEUTROPHILS # 6.6 10^3/uL (1.5-8.5); NEUTROPHILS % 63.4 % (36.0-66.0); PLATELET COUNT, AUTOMATED 281 10^3/uL (150-450); RED BLOOD COUNT 5.19 10^6/uL (4.00-5.40); WHITE BLOOD COUNT 10.4 10^3/uL (4.0-10.0)
[2024-02-29 18:28] LABS: ALBUMIN 3.8 G/DL (3.2-5.2); ALKALINE PHOSPHATASE 69 U/L (35-104); ALT/SGPT 25 U/L (7.0-40); AST/SGOT 16 U/L (<34); BILIRUBIN,TOTAL 0.6 MG/DL (0.3-1.2); BLOOD UREA NITROGEN 20 MG/DL (9-23); CARBON DIOXIDE LEVEL 31 MMOL/L (20-31); CHLORIDE LEVEL 100 MMOL/L (98-107); CREATININE FOR GFR 0.81 MG/DL (0.55-1.30); GLOMERULAR FILTRATION RATE > 60.0 (>39); GLUCOSE, FASTING 137 MG/DL (74-106); POTASSIUM SERUM 4.2 MMOL/L (3.5-5.1); SODIUM LEVEL 140 MMOL/L (136-145)
[2024-03-01 16:37] LABS: CA15-3 ANTIGEN 11.8 U/ML (<32.4)
== END ==
LOC: M LABDRAWC 16:34
PROVIDERS: ATTEND Specialist
DX: C50.919 Malignant neoplasm of unspecified site of unspecified female breast (principal)

== ENCOUNTER → 2024-11-27 | Outpatient (REF) | payer MEDICARE, OTHER ==
[~2024-11-27] MED LIST changes: +LISI40TA10 PO; -LISI40TA4 PO
[2024-11-27 16:44] LABS: ESTIMATED AVERAGE GLUCOSE 148.0 MG/DL (60-110)
== END ==
LOC: M SFHCCLAY 09:18
PROVIDERS: ATTEND Nurse Practitioner Family
DX: E11.9 Type 2 diabetes mellitus without complications (principal)

== ENCOUNTER → 2024-12-31 | Outpatient (REF) | payer MEDICARE, OTHER | LOC: M SFHCCLAY 17:12 → M LAB REF 17:12 | PROVIDERS: ATTEND Physician Assistant | DX: R30.0 Dysuria (principal); N89.8 Other specified noninflammatory disorders of vagina ==

== ENCOUNTER → 2025-01-05 | Outpatient (REF) | payer MEDICARE, OTHER ==
[2025-01-05 17:48] LABS: APPEARANCE, URINE CLEAR (CLEAR); BACTERIA, URINE AUTO NEGATIVE (NEGATIVE); BILIRUBIN, URINE AUTO NEGATIVE (NEGATIVE); BLOOD, URINE BLOOD 2+ (NEGATIVE); GLUCOSE, URINE (UA) AUTO 3+ mg/dL (NEGATIVE); KETONE, URINE AUTO NEGATIVE (NEGATIVE); LEUKOCYTE ESTERASE, URINE AUTO NEGATIVE (NEGATIVE); NITRITE, URINE AUTO NEGATIVE (NEGATIVE); PROTEIN, URINE AUTO NEGATIVE (NEGATIVE); RBC, URINE AUTO 1 /HPF (0-3); SPECIFIC GRAVITY URINE AUTO 1.020 (1.002-1.035); SQUAMOUS EPITHELIAL CELL UR AU 0 /HPF (0-6); UROBILINOGEN, URINE AUTO 0.2 mg/dL (0.0-2.0); WBC, URINE AUTO 2 /HPF (0-3)
== END ==
LOC: M SFHCCLAY 11:15
PROVIDERS: ATTEND Physician Assistant
DX: N30.01 Acute cystitis with hematuria (principal)

== ENCOUNTER → 2025-01-15 | Outpatient (REF) | payer MEDICARE, OTHER ==
[2025-01-15 17:57] LABS: APPEARANCE, URINE CLEAR (CLEAR); BACTERIA, URINE AUTO NEGATIVE (NEGATIVE); BILIRUBIN, URINE AUTO NEGATIVE (NEGATIVE); BLOOD, URINE BLOOD 2+ (NEGATIVE); GLUCOSE, URINE (UA) AUTO 3+ mg/dL (NEGATIVE); KETONE, URINE AUTO NEGATIVE (NEGATIVE); LEUKOCYTE ESTERASE, URINE AUTO NEGATIVE (NEGATIVE); NITRITE, URINE AUTO NEGATIVE (NEGATIVE); PROTEIN, URINE AUTO NEGATIVE (NEGATIVE); RBC, URINE AUTO 4 /HPF (0-3); SPECIFIC GRAVITY URINE AUTO 1.017 (1.002-1.035); SQUAMOUS EPITHELIAL CELL UR AU 1 /HPF (0-6); UROBILINOGEN, URINE AUTO 0.2 mg/dL (0.0-2.0); WBC, URINE AUTO 3 /HPF (0-3)
== END ==
LOC: M SFHCCLAY 11:14
PROVIDERS: ATTEND Physician Assistant
DX: R31.29 Other microscopic hematuria (principal)

== ENCOUNTER → 2025-01-16 | Outpatient (REF) | payer MEDICARE, OTHER ==
[2025-01-16 18:27] LABS: BASO # 0.1 10^3/uL (0.0-0.2); BASO % 0.5 % (0.0-1.0); EOS # 0.2 10^3/uL (0.0-0.5); EOS % 2.3 % (0.0-3.0); LYMPH # 2.4 10^3/uL (1.5-5.0); LYMPH % 24.6 % (24.0-44.0); MONO # 0.8 10^3/uL (0.0-0.8); MONO % 8.2 % (2.0-8.0); NEUTROPHILS # 6.3 10^3/uL (1.5-8.5); NEUTROPHILS % 64.1 % (36.0-66.0); PLATELET COUNT, AUTOMATED 296 10^3/uL (150-450)
[2025-01-16 18:36] LABS: ALT/SGPT 42.0 U/L (7.0-40); AST/SGOT 29.0 U/L (<34); CALCIUM LEVEL 9.7 MG/DL (8.3-10.6); CARBON DIOXIDE LEVEL 28.0 MMOL/L (20-31); CHLORIDE LEVEL 101.0 MMOL/L (98-107); CREATININE FOR GFR 1.25 MG/DL (0.55-1.30); GLOMERULAR FILTRATION RATE 44.7 (>39); POTASSIUM SERUM 4.7 MMOL/L (3.5-5.1); SODIUM LEVEL 139.0 MMOL/L (136-145)
== END ==
LOC: M SFHCCLAY 11:30
PROVIDERS: ATTEND Physician Assistant
DX: R42 Dizziness and giddiness (principal); Z79.899 Other long term (current) drug therapy

== ENCOUNTER → 2025-02-20 | Outpatient (REF) | payer MEDICARE, OTHER ==
[2025-02-20 13:58] LABS: BASO # 0.1 10^3/uL (0.0-0.2); BASO % 0.6 % (0.0-1.0); EOS # 0.2 10^3/uL (0.0-0.5); EOS % 2.1 % (0.0-3.0); LYMPH # 3.5 10^3/uL (1.5-5.0); LYMPH % 32.6 % (24.0-44.0); MONO # 0.6 10^3/uL (0.0-0.8); MONO % 6.0 % (2.0-8.0); NEUTROPHILS # 6.2 10^3/uL (1.5-8.5); NEUTROPHILS % 58.3 % (36.0-66.0); PLATELET COUNT, AUTOMATED 293 10^3/uL (150-450)
[2025-02-20 14:03] LABS: ALT/SGPT 23.0 U/L (7.0-40); AST/SGOT 18.0 U/L (<34); CALCIUM LEVEL 9.6 MG/DL (8.3-10.6); CARBON DIOXIDE LEVEL 30.0 MMOL/L (20-31); CHLORIDE LEVEL 100.0 MMOL/L (98-107); CREATININE FOR GFR 0.91 MG/DL (0.55-1.30); GLOMERULAR FILTRATION RATE 65.4 (>39); POTASSIUM SERUM 4.3 MMOL/L (3.5-5.1); SODIUM LEVEL 141.0 MMOL/L (136-145)
== END ==
LOC: M LABDRAWC 12:01
PROVIDERS: ATTEND Specialist
DX: C50.912 Malignant neoplasm of unspecified site of left female breast (principal)